=== PATIENT | female | born 1980 | race Two or more races ===

== ENCOUNTER → 2016-11-20 | Outpatient (CLI) | payer OTHER ==
[2016-11-20 13:13] LABS: Basophils # (auto) 0.1 uL; Basophils % (auto) 0.6 % (0.0-2.0); Eosinophils # (auto) 0.1 uL; Eosinophils % (auto) 0.6 % (0.0-7.0); Hematocrit 35.7 % (36.0-46.0); Hemoglobin 12.6 g/dL (12.2-16.2); Lymphocytes # (auto) 2.5 uL; Mean Corpuscular Hgb Conc. 35.2 g/dL (32.0-36.0); Mean Corpuscular Volume 88.2 fL (80.0-100.0); Mean Platelet Volume 8.6 fL (7.4-10.4); Monocytes # (auto) 0.7 uL; Monocytes % (auto) 7.3 % (0.0-12.0); Neutrophils # (auto) 6.4 uL; Neutrophils % (auto) 65.5 % (37.0-80.0); Platelet Count (auto) 327 10^3/uL (140-450); Red Cell Distribution Width 13.1 % (11.6-16.0); White Blood Cell 9.7 10^3/uL (4.4-10.8)
== END | disposition home or self-care (01) ==
LOC: LAB 12:39
PROVIDERS: ATTEND Obstetrics & Gynecology
DX: Z34.80 Encounter for supervision of other normal pregnancy, unspecified trimester (principal); Z36 Encounter for antenatal screening of mother
CPT/HCPCS: 36415; 81025; 81220; 84702; 85025; 86592; 86703; 86762; 86850; 86900; 86901; 87086; 87340

== ENCOUNTER → 2017-03-19 | Outpatient (CLI) | payer OTHER ==
[2017-03-19 09:55] LABS: Basophils # (auto) 0.1 uL; Basophils % (auto) 0.7 % (0.0-2.0); Eosinophils # (auto) 0.1 uL; Eosinophils % (auto) 0.7 % (0.0-7.0); Hematocrit 31.5 % (36.0-46.0); Hemoglobin 10.8 g/dL (12.2-16.2); Lymphocytes # (auto) 2.7 uL; Lymphocytes % (auto) 23.3 % (10.0-50.0); Mean Corpuscular Hemoglobin 30.8 pg (28.0-32.0); Mean Corpuscular Hgb Conc. 34.2 g/dL (32.0-36.0); Mean Corpuscular Volume 89.9 fL (80.0-100.0); Mean Platelet Volume 8.8 fL (6.9-10.8); Monocytes # (auto) 0.8 uL; Monocytes % (auto) 6.8 % (0.0-12.0); Neutrophils # (auto) 7.8 uL; Neutrophils % (auto) 68.5 % (37.0-80.0); Nucleated Red Blood Cells % 0.1 %; Platelet Count (auto) 287 10^3/uL (140-450); Red Cell Distribution Width 13.7 % (11.8-14.3); White Blood Cell 11.4 10^3/uL (4.4-10.8)
== END | disposition home or self-care (01) ==
LOC: LAB 08:32
PROVIDERS: ATTEND Obstetrics & Gynecology
DX: O99.810 Abnormal glucose complicating pregnancy (principal); Z3A.00 Weeks of gestation of pregnancy not specified
CPT/HCPCS: 36415; 82951; 85025

== ENCOUNTER 2017-04-08 15:10 | Observation (INO) | payer OTHER ==
[~2017-04-08] VITALS: Ht 165.1 cm; Wt 71.2 kg
[2017-04-08] MEDS ORDERED: LACTATED RINGER'S 1,000 ML IV ONE (17:19)
[2017-04-08] MEDS: TERBUTALINE SULFATE 1 MG/ML 1ML VIAL SC SCH ×2 (17:34→18:28)
[2017-04-08] MEDS ORDERED: NIFEdipine 10 MG CAP PO ONE (18:45)
== END 2017-04-08 19:45 | disposition home or self-care (01) | DRG 781 ==
LOC: LDRP 15:10
PROVIDERS: ADMIT Specialist; ATTEND Specialist
DX: O26.893 Other specified pregnancy related conditions, third trimester (principal); R10.9 Unspecified abdominal pain; Z3A.30 30 weeks gestation of pregnancy
CPT/HCPCS: 59025; 76815; 81002; 96360; 96361; 96372; G0378; J3105; 96365; 96366

== ENCOUNTER → 2017-05-12 | Outpatient (CLI) | payer OTHER ==
[2017-05-12 11:12] LABS: Basophils # (auto) 0 uL; Basophils % (auto) 0.6 % (0.0-2.0); Eosinophils # (auto) 0.1 uL; Eosinophils % (auto) 0.8 % (0.0-7.0); Hematocrit 30.6 % (36.0-46.0); Hemoglobin 10.5 g/dL (12.2-16.2); Lymphocytes % (auto) 22.4 % (10.0-50.0); Mean Corpuscular Hemoglobin 30.7 pg (28.0-32.0); Mean Corpuscular Hgb Conc. 34.5 g/dL (32.0-36.0); Mean Platelet Volume 9.1 fL (6.9-10.8); Monocytes # (auto) 0.6 uL; Monocytes % (auto) 7.1 % (0.0-12.0); Neutrophils # (auto) 6.1 uL; Neutrophils % (auto) 69.1 % (37.0-80.0); Platelet Count (auto) 240 10^3/uL (140-450); Red Cell Distribution Width 13.1 % (11.8-14.3); White Blood Cell 8.8 10^3/uL (4.4-10.8)
== END | disposition home or self-care (01) ==
LOC: LAB 10:52
PROVIDERS: ATTEND Obstetrics & Gynecology
DX: O09.529 Supervision of elderly multigravida, unspecified trimester (principal); O23.599 Infection of other part of genital tract in pregnancy, unspecified trimester; Z3A.00 Weeks of gestation of pregnancy not specified
CPT/HCPCS: 36415; 85025; 86592; 87081

== ENCOUNTER 2017-06-11 17:15 | Inpatient (IN) | payer OTHER ==
[~2017-06-11] VITALS: Ht 1 cm; Wt 0.5 kg
[2017-06-11] MEDS ORDERED: LACTATED RINGER'S 1,000 ML IV SCH ×2 (17:36→17:37)
[2017-06-11] MEDS ORDERED: LACT. RINGERS/OXYTOCIN 20UNITS 1,000 ML IV SCH ×2 (17:36→17:37)
[2017-06-11] MEDS ORDERED: NALBUPHINE HCL 10 MG/1ml INJECTION IV PRN ×2 (17:45)
[2017-06-11] MEDS ORDERED: PHISODERM TOP SOLN 240ML BTL TOP PRN ×2 (17:45)
[2017-06-11] MEDS ORDERED: METHYLERGONOVINE MALEATE 0.2 MG/ML AMP IM PRN ×2 (17:45)
[2017-06-11] MEDS ORDERED: PROMETHAZINE HCL 25 MG/ML 1ML IV PRN (17:45)
[2017-06-11] MEDS ORDERED: LIDOCAINE 2%HCL (LOCAL ANESTH.) INJ 20ML MDV IJ ONE (17:45)
[2017-06-11] MEDS ORDERED: CARBOPROST TROMETHAMINE 250 MCG/1ML VIAL IM PRN (17:45)
[2017-06-11] MEDS ORDERED: LIDOCAINE 2%HCL (LOCAL ANESTH.) INJ 20ML MDV IJ PRN (17:45)
[2017-06-11] MEDS ORDERED: WITCH HAZEL-GLYCERIN PAD TOP PRN ×2 (17:45)
[2017-06-11] MEDS ORDERED: DERMOPLAST 60ML BOTTLE TOP PRN ×2 (17:45)
[2017-06-11 18:22] LABS: Basophils # (auto) 0 uL; Basophils % (auto) 0.5 % (0.0-2.0); Eosinophils # (auto) 0 uL; Eosinophils % (auto) 0.5 % (0.0-7.0); Hematocrit 29.6 % (36.0-46.0); Hemoglobin 10.2 g/dL (12.2-16.2); Lymphocytes # (auto) 2.1 uL; Lymphocytes % (auto) 22.5 % (10.0-50.0); Mean Corpuscular Hemoglobin 30.9 pg (28.0-32.0); Mean Corpuscular Hgb Conc. 34.3 g/dL (32.0-36.0); Monocytes # (auto) 0.8 uL; Monocytes % (auto) 8.9 % (0.0-12.0); Neutrophils # (auto) 6.3 uL; Neutrophils % (auto) 67.6 % (37.0-80.0); Nucleated Red Blood Cells % 2.1 %; Platelet Count (auto) 235 10^3/uL (140-450); Red Blood Cells 3.28 10^6/uL (4.0-5.20); White Blood Cell 9.3 10^3/uL (4.4-10.8)
[2017-06-11 18:28] LABS: Urine Bacteria MOD /hpf (None Seen); Urine Blood 2+ /uL (Negative); Urine Specific Gravity 1.006 (1.001-1.035); Urine WBC 74 /hpf (0 - 5)
[2017-06-11 18:35] LABS: Albumin 2.3 g/dL (3.4-5.0); BUN/Creatinine Ratio 19.1; Bilirubin, Total 0.2 mg/dL (0.2-1.0); Potassium 3.9 mmol/L (3.5-5.1); Total Protein 6.5 g/dL (6.4-8.2)
[2017-06-11 18:38] LABS: INR 0.86 (0.9-1.15); Partial Thromboplastin Time 28.8 sec (22.64-33.71); Prothrombin Time 9.4 sec (9.37-12.3)
[2017-06-12] VITALS: BP 100/61
[2017-06-12] MEDS ORDERED: fentaNYL W ROPIVACAINE 150 ML EPI SCH ×2 (01:30→03:45)
[2017-06-12] MEDS ORDERED: NALOXONE HCL 0.4 MG/ML VIAL IV ONE ×2 (01:30→03:45)
[2017-06-12] MEDS ORDERED: ePHEDrine SULFATE 50 MG/ML AMP IV ONE ×2 (01:30→03:45)
[2017-06-12] MEDS ORDERED: fentaNYL CITRATE 100 MCG/2 ML VL IV ONE (01:30)
[2017-06-12] MEDS ORDERED: LIDOCAINE HCL 2 %PF INJ 10ML AMP IJ ONE (01:30)
[2017-06-12] MEDS ORDERED: SODIUM CHLORIDE 0.9% 500 ML IV PRN (03:39)
[2017-06-12] MEDS ORDERED: CLINDAMYCIN 900MG IV 50 ML IV ONE (08:41)
[2017-06-12] MEDS ORDERED: PREN-96 PO (15:13)
[2017-06-12 16:00] VITALS: BP 113/84
[2017-06-12 20:00] VITALS: BP 108/73
[2017-06-13] VITALS: BP 100/61
[2017-06-13 04:03] VITALS: BP 106/71
[2017-06-13 06:56] VITALS: BP 113/78
[2017-06-13 12:10] VITALS: BP 115/76
== END 2017-06-13 13:40 | disposition home or self-care (01) | DRG 775 ==
LOC: OBSVTOIN 17:15 → LDRP 17:15
PROVIDERS: ADMIT Obstetrics & Gynecology; ATTEND Obstetrics & Gynecology
PROC: 10E0XZZ Delivery of Products of Conception, External Approach (ICD-10-PCS; principal; 2017-06-12)
PROC: 0KQM0ZZ Repair Perineum Muscle, Open Approach (ICD-10-PCS; 2017-06-12)
PROC: 00HU33Z Insertion of Infusion Device into Spinal Canal, Percutaneous Approach (ICD-10-PCS; 2017-06-12)
PROC: 3E0R3BZ Introduction of Anesthetic Agent into Spinal Canal, Percutaneous Approach (ICD-10-PCS; 2017-06-12)
DX: O42.02 Full-term premature rupture of membranes, onset of labor within 24 hours of rupture (principal); O71.4 Obstetric high vaginal laceration alone; O69.81X0 Labor and delivery complicated by cord around neck, without compression, not applicable or unspecified; Z37.0 Single live birth; Z3A.39 39 weeks gestation of pregnancy; O71.82 Other specified trauma to perineum and vulva
CPT/HCPCS: 36415; 59025; 59409; 62282; 80053; 81001; 85025; 85610; 85730; 86850; 86900; 86901; 96361; 96366; 96374; J2590; J3010; J3490

== ENCOUNTER 2024-12-01 20:02 | Inpatient (IN) | payer MEDICAID, OTHER ==
[~2024-12-01] VITALS: Ht 160 cm; Wt 73.0 kg
[~2024-12-01 20:02] MED LIST: PREN-96 PO
--- NOTE | 2024-12-01 20:14 | ED.PDOC ---
GI ASSESSMENT HPI Comments 44 year old female presents to the ED via EMS with a chief complaint of abdominal pain onset today (12/01/24) about 3 hours ago. Patient was at a facility with her children when she began experiencing sharp LLQ pain, nausea/vomiting. Per EMS, patient was given 200 mcg Fentanyl in route, with slight improvement of pain. Denies any PMHx as well as diarrhea, constipation, chest pain, fevers, chills, headache, dizziness, dysuria, hematuria, hematemes is. No other symptoms or modifying factors present at this time. Chief Complaint: Abdominal Pain Time Seen by MD: 20:05 Reviewed Notes: Nurses Notes, Sanding Machine Tender Notes, Medications, Allergies Allergies: Coded Allergies: Penicillins (Verified Allergy, Unknown, 04/08/17) RASH Home Meds Reported Medications Vit W/ Ferrous Fumara ( One Daily) Daily Tab, 1 TAB PO DAILY, #90 TAB 3 Refills 06/12/17 Information Source: Patient, Emergency Med Personnel Mode of Arrival: EMS Timing: Hours Duration: Since onset Prehospital treatment: Pain Meds (200 mcg Fentanyl) Quality: Cramping, Sharp Vomitus: Food Particles, Soft, Watery Severity: Severe Recent: None Recent Hx of: None Pain Location: LLQ Modifying Factors: Nothing Associated sign and symptoms: Nausea, Vomiting, Abdominal Pain Past Medical History PAST MEDICAL HISTORY: Denies Surgical History: Denies all surgeries DECOMMISSIONING WELL SITE MANAGER History: No Pertinent DECOMMISSIONING WELL SITE MANAGER History Family History Family History: Reviewed,noncontributory to illness, No family hx of Cancer, No family hx of DM, No family hx of Heart candie, No family hx of HTN, No family hx ofKidney candie, No family hx of Liver candie, No family hx of Lung candie, No family hx of Stroke Social History Smoker: Non-Smoker Alcohol: Denies ETOH Use Drugs: Denies Drug Use Lives In: Home Constitutional: denies: chills, diaphoresis, fatigue, fever, malaise, sweats, weakness, others EENTM: denies: blurred vision, double vision, ear bleeding, ear discharge, ear drainage, ear pain, ear ringing, eye pain, eye redness, hearing loss, mouth pain , mouth swelling, nasal discharge, nose bleeding, nose congestion, nose pain, photophobia, tearing, throat pain, throat swelling, voice changes, others Respiratory: denies: cough, hemoptysis, orthopnea, SOB at rest, shortness of breath, SOB with excertion, stridor, wheezing, others Cardiovascular: denies: chest pain, dizzy spells, diaphoresis, Dyspnea on exertion, edema, irregular heart beat, left arm pain, lightheadedness, palpitations, PND, syncope, others Gastrointestinal: reports: abdominal pain (LLQ), nausea, vomiting; denies: abdomen distended, blood streaked bowels, constipated, diarrhea, dysphagia, difficulty swallowing, hematemesis, melena, poor appetite, poor fluid intake, rectal bleeding, rectal pain, others Genitourinary: denies: abnormal vagina bleeding, burning, dyspareunia, dysuria, flank pain, frequency, hematuria, incontinence, pain, , vagina discharge, urgency, others Neurological: denies: dizziness, fainting, headache, left sided numbness, left sided weakness, numbness, paresthesia, pre-existing deficit, right sided numbness, right sided weakness, seizure, speech problems, tingling, tremors, weakness, others Musculoskeletal: denies: back pain, gout, joint pain, joint swelling, muscle pain, muscle stiffness, neck pain, others Integumetry: denies: bruises, change in color, change in hair/nails, dryness, laceration, lesions, lumps, rash, wounds, others Allergic/Immunocompromised: denies: Difficulty Healing, Frequent Infections, Hives, Itching, others Hematologic/Lymphatic: denies: anemia, blood clots, easy bleeding, easy bruising, swollen glands, others Endocrine: denies: excessive hunger, excessive sweating, excessive thirst, excessive urination, flushing, intolerance to cold, intolerance to heat, unexplained weight gain, unexplained weight loss, others Psychiatric: denies: anxiety, bipolar disorder, depression, hopeless, panic disorder, schizophrenia, sleepless, suicidal, others All Other Systems: Reviewed and Negative Physical Exam General Appearance: Moderate Distress (Patient was in moderate distress due to left-sided abdominal and flank a sharp pain), Normal HEENT: Normal ENT Inspection, Pharynx Normal, TMs Normal Neck: Full Range of Motion, Non-Tender, Normal, Normal Inspection Respiratory: Chest Non-Tender, Lungs Clear, No Accessory Muscle Use, No Respiratory Distress, Normal Breath Sounds Cardiovascular: No Edema, No JVD, No Murmur, No Gallop, Normal Peripheral Pulses, Regular Rate/Rhythm Breast Exam: Deferred Gastrointestinal: Other (Diffuse left-sided lower abdominal pain extending towards the left flank region. CVA tenderness appreciated. No signs of trauma.) Genitalia: Deferred Pelvic: Deferred Rectal: Deferred Extremities: No calf tenderness, Normal capillary refill, Normal inspection, Normal range of motion, Non-tender, No pedal edema Musculoskeletal : Apperance: Normal Neurologic: Alert, No Motor Deficits, Normal Affect, Normal Mood, No Sensory Deficits Cerebellar Function: Normal Reflexes: Normal Skin: Dry, Normal Color, Warm Lymphatic: No Adenopathy Was a procedure done? Was a procedure done?: No GI differential Dx Differential Diagnosis: Other (Kidney stone, occlusive kidney stone, pyelonephritis, UTI, musculoskeletal pain, constipation) X-Ray, Labs, Meds, VS Vital Signs Date Time Temp Pulse Resp B/P (MAP) Pulse Ox O2 Delivery O2 Flow Rate FiO2 12/01/24 23:07 97.7 84 24 170/109 (129) 99 97.7 12/01/24 20:20 78 28 171/104 12/01/24 20:10 98.4 78 28 171/104 (126) 96 98.4 Lab Test 12/01/24 20:37 12/01/24 20:35 Range/Units Urine Color Colorless Yellow Urine Clarity Clear Clear Urine pH 7.0 5.0-9.0 Urine Specific [place] 1.011 1.001-1.035 Urine Protein Negative Negative Urine Ketones 1+ H Negative Urine Blood 2+ H Negative /uL Urine Nitrite Negative Negative Urine Bilirubin Negative Negative Urine Urobilinogen Normal Negative mg/dL Urine Leukocyte Esterase Trace Negative /uL Urine RBC 65 0 - 4 /hpf Urine Microscopic WBC 1 0-5 /HPF Urine Squamous Epithelial Cells Few <5 /hpf Urine Bacteria None seen None Seen /hpf Urine Mucus Few None Seen Urine Glucose Normal Normal mg/dL Urine Test Negative Negative White Blood Count 12.5 H 4.4-10.8 10^3/uL Red Blood Count 4.50 4.0-5.20 10^6/uL Hemoglobin 13.1 12.2-16.2 g/dL Hematocrit 38.1 36.0-46.0 % Mean Corpuscular Volume 84.6 80.0-100.0 fL Mean Corpuscular Hemoglobin 29.2 28.0-32.0 pg Mean Corpuscular Hemoglobin Concent 34.5 32.0-36.0 g/dL Red Cell Distribution Width 13.3 11.8-14.3 % Platelet Count 302 140-450 10^3/uL Mean Platelet Volume 8.7 6.9-10.8 fL Neutrophils (%) (Auto) 82.3 H 37.0-80.0 % Lymphocytes (%) (Auto) 13.8 10.0-50.0 % Monocytes (%) (Auto) 3.2 0.0-12.0 % Eosinophils (%) (Auto) 0.2 0.0-7.0 % Basophils (%) (Auto) 0.5 0.0-2.0 % Neutrophils # (Auto) 10.3 H 1.6-8.6 10 ^3/uL Lymphocytes # (Auto) 1.7 0.4-5.4 10 ^3/uL Monocytes # (Auto) 0.4 0-1.3 10 ^3/uL Eosinophils # (Auto) 0 0-0.8 10 ^3/uL Basophils # (Auto) 0.1 0-0.2 10 ^3/uL Nucleated Red Blood Cells 0.0 % Sodium Level 140 136-145 mmol/L Potassium Level 3.3 L 3.5-5.1 mmol/L Chloride Level 107 98-107 mmol/L Carbon Dioxide Level 20 20-31 mmol/L Anion Gap 13 5-15 Blood Urea Nitrogen 16 9-23 mg/dL Creatinine 0.87 0.550-1.02 mg/dL Glomerular Filtration Rate Calc 85 >90 mL/min BUN/Creatinine Ratio 18.4 10.0-20.0 Serum Glucose 132 H 74-106 mg/dL Calcium Level 8.8 8.7-10.4 mg/dL Total Bilirubin 0.3 0.2-1.0 mg/dL Aspartate Amino Transferase (AST) 12 <34 U/L Alanine Aminotransferase (ALT) 9 7-40 U/L Alkaline Phosphatase 71 46-116 U/L Total Protein 7.2 5.7-8.2 g/dL Albumin 4.3 3.2-4.8 g/dL Lipase 36 12-53 U/L Current Medications Medications (Trade) Dose Ordered Sig/Gregory Route Start Time Stop Time Status Last Admin Hydromorphone HCl (Dilaudid Injection) 0.5 mg ONCE ONCE IV 12/01/24 20:15 12/01/24 20:16 DC 12/01/24 20:20 Ondansetron HCl (Zofran) 4 mg ONCE ONCE IV 12/01/24 20:15 12/01/24 20:16 DC 12/01/24 20:20 X-Ray, Labs, Meds, VS Comment All studies performed in the ED today were evaluated by me personally. Serum studies were unremarkable for any systemic concerns, but urinalysis confirmed a high red blood cell concentration. CT of the abdomen confirmed a left-sided hydronephrosis with a an occlusive stone. Patient will be admitted for pain management and assistance in passing stone. Time of 1ST Reevaluation: 23:16 Reevaluation 1ST: Improved Consultation: PCP Patient Education/Counseling: Diagnosis, Treatment, Prognosis Family Education/Counseling: Diagnosis, Treatment, No Family Present SEPSIS Sepsis Screen Recent Procedure: No On Antibiotic Therapy: No Respiratory Rate >20: No Heart Rate >90: No Temp<36 C (96.8 F) or >38.3 C: No SBP <90 or MAP <65 mmHG: No New Acute Mental Status Change: No Is the patient on CPAP, BIPAP,: No IV fluid challenge completed?: No Physician Orders Ct Ab Pel Wo Con-No Oral Or Iv (12/01/24 20:09) Heplock Iv (12/01/24 ) Heplock Iv (12/01/24 ) Vital Signs Date Time Temp Pulse Resp B/P (MAP) Pulse Ox O2 Delivery O2 Flow Rate FiO2 12/01/24 23:07 97.7 84 24 170/109 (129) 99 97.7 12/01/24 20:20 78 28 171/104 12/01/24 20:10 98.4 78 28 171/104 (126) 96 98.4 Laboratory Tests Test 12/01/24 20:35 White Blood Count 12.5 10^3/uL (4.4-10.8) H Medications Medications Dose Ordered Sig/Gregory Route Start Time Stop Time Status Last Admin Dose Admin Hydromorphone HCl 0.5 mg ONCE ONCE IV 12/01/24 20:15 12/01/24 20:16 DC 12/01/24 20:20 Ondansetron HCl 4 mg ONCE ONCE IV 6/20/25 20:15 12/01/24 20:16 DC 12/01/24 20:20 Departure 1 Departure Time of Disposition: 23:17 Impression: Primary Impression: Hydronephrosis concurrent with and due to calculi of kidney and ureter Disposition: ADMITTED INPATIENT Condition: Stable Discharged With: Self, Spouse Critical Care Note Critical Care Time?: No Stability Stability form required: No Heart Score Heart Score: Heart Score Response (Comments) Value History N/A 0 EKG N/A 0 Age N/A 0 Risk Factors N/A 0 Troponin N/A 0 Total 0 I personally scribed for TARA VILLATORO PAC ([email or web address]) on 12/01/24 at 20:14. Electronically submitted by Ivone Porter ([email or web address]). TARA VILLATORO PAC Dec 01, 2024 20:14
[2024-12-01] MEDS: HYDROmorphone HCL 2 MG/ML VL/or syr IV ONE ×2 (20:20→23:28)
[2024-12-01] MEDS: ONDANSETRON HCL 4 MG/2 ML VIAL IV ONE (20:20)
[2024-12-01 20:45] LABS: Basophils # (auto) 0.1 10 ^3/uL (0-0.2); Basophils % (auto) 0.5 % (0.0-2.0); Eosinophils # (auto) 0 10 ^3/uL (0-0.8); Eosinophils % (auto) 0.2 % (0.0-7.0); Hematocrit 38.1 % (36.0-46.0); Hemoglobin 13.1 g/dL (12.2-16.2); Lymphocytes # (auto) 1.7 10 ^3/uL (0.4-5.4); Lymphocytes % (auto) 13.8 % (10.0-50.0); Mean Corpuscular Hemoglobin 29.2 pg (28.0-32.0); Mean Corpuscular Hgb Conc. 34.5 g/dL (32.0-36.0); Mean Corpuscular Volume 84.6 fL (80.0-100.0); Monocytes # (auto) 0.4 10 ^3/uL (0-1.3); Monocytes % (auto) 3.2 % (0.0-12.0); Neutrophils # (auto) 10.3 10 ^3/uL (1.6-8.6); Neutrophils % (auto) 82.3 % (37.0-80.0); Platelet Count (auto) 302 10^3/uL (140-450); Red Cell Distribution Width 13.3 % (11.8-14.3); White Blood Cell 12.5 10^3/uL (4.4-10.8)
[2024-12-01 21:04] LABS: Albumin 4.3 g/dL (3.2-4.8); Alkaline Phosphatase 71 U/L (46-116); Anion Gap 13 (5-15); Aspartate Aminotransferase 12 U/L (<34); BUN/Creatinine Ratio 18.4 (10.0-20.0); Bilirubin, Total 0.3 mg/dL (0.2-1.0); Blood Urea Nitrogen 16 mg/dL (9-23); Calcium 8.8 mg/dL (8.7-10.4); Carbon Dioxide 20 mmol/L (20-31); Chloride 107 mmol/L (98-107); Lipase 36 U/L (12-53); Sodium 140 mmol/L (136-145); Total Protein 7.2 g/dL (5.7-8.2)
[2024-12-01 21:06] LABS: Urine Bacteria None Seen /hpf (None Seen)
[2024-12-01 21:08] LABS: Alanine Aminotransferase 9 U/L (7-40); Glucose 132 mg/dL (74-106); Potassium 3.3 mmol/L (3.5-5.1)
[2024-12-01 21:19] LABS: Urine Blood 2+ /uL (Negative); Urine Clarity Clear (Clear); Urine Color Colorless (Yellow); Urine Mucus FEW (None Seen); Urine Protein, UAD Negative (Negative); Urine Specific Gravity 1.011 (1.001-1.035); Urine Squamous Epithelial Cell FEW /hpf (<5); Urine Urobilinogen Normal (Negative); Urine WBC 1 /HPF (0-5)
--- NOTE | 2024-12-01 22:03 | DVH ---
Exam: CT CT AB PEL WO CON-NO ORAL OR IV History: Left lower quadrant pain Comparison Study: None TECHNIQUE: Multidetector CT of the abdomen was performed from lung bases to pubic symphysis. Imaging was performed without IV contrast. Axial, coronal and sagittal multiplanar reformats were obtained fr om the axial data set by the technologist. Radiation Dose Information: CT Dose: CTDI volume is 8.78 mGy. Dose-length product is 523.38 mGy*cm FINDINGS: Evaluation of solid organs is limited due to lack of intravenous contrast use. Findings: Lung Bases: No acute or significant lung base finding. Normal heart size. No pleural or pericardial effusion. Liver: The liver is normal in size. No focal lesions. Gallbladder and Biliary Tree: Unremarkable Spleen: Unremarkable Pancreas: The pancreas is grossly normal in appearance. Adrenal Glands: Unremarkable Kidneys: Kidneys are grossly normal . Mild left hydronephrosis. Bladder: 5.37 mm calculus at the left ureterovesical junction Bowel: The stomach is grossly normal in appearance. Small bowel and colon are normal in caliber and d istribution. The appendix is not visualized; however, no secondary findings of acute appendicitis id entified. Ascites: Absent Lymphadenopathy: No mesenteric, retroperitoneal or periportal lymphadenopathy. Abdominal Wall and Mesentery: Unremarkable. Vasculature: The visualized abdominal aorta is normal in size and caliber. Evaluation of abdominal a nd pelvic vessels is limited due to lack of intravenous contrast. Pelvic Organs: Unremarkable Musculoskeletal: No aggressive focal bony lesions, acute fractures or dislocation. Soft tissues: Unremarkable IMPRESSION: 1. Mild left hydronephrosis. There is a 5.37 mm calculus at the left ureterovesical junction. HS:Y Radiation optimization: All CT scans at this facility use at least one of these dose optimization jana hniques: automated exposure control mA and/or kV adjustment per patient size (includes targeted exam s where dose is matched to clinical indication) or iterative reconstruction.
[2024-12-01] MEDS ORDERED: HYDROcodone-ACET 10/325MG TAB PO ONE (23:00)
[2024-12-02] VITALS (7 sets, daily range): BP systolic 113–136; BP diastolic 75–95; PULSE 72–100; RESP 13–17; TEMP 97.6–98.6; O2SAT 94–100
[2024-12-02] MEDS ORDERED: HYDROcodone-ACET 5/325MG TAB PO PRN
[2024-12-02] MEDS ORDERED: ACETAMINOPHEN 325 MG TAB PO PRN
[2024-12-02] MEDS ORDERED: HYDROmorphone HCL 2 MG/ML VL/or syr IV PRN
[2024-12-02] MEDS ORDERED: ONDANSETRON HCL 4 MG/2 ML VIAL IV PRN
[2024-12-02] MEDS ORDERED: DOCUSATE SOD 100 MG CAP PO PRN
[2024-12-02] MEDS: cefTRIAXone 1GM/50ML D5W 50 ML IV ONE (02:23)
[2024-12-02] MEDS: KETOROLAC TROMETH 30 MG/ML 1ML VIAL IV ONE (02:24)
[2024-12-02] MEDS ORDERED: MORPHINE SULFATE INJ 2 MG/ml SYRG IV PRN (03:15)
[2024-12-02] MEDS ORDERED: NITROGLYCERIN 0.4 MG SL TAB SL PRN (03:15)
--- NOTE | 2024-12-02 03:23 | DVHHP2 ---
History of Present Illness Reason for Visit: Hydronephrosis concurrent with and due to calculi of kidney and ureter History of Present Illness The patient is a 44-year-old female who denies past medical history presented to [facility] ED with complaint of acute abdominal pain. Patient reports she was was at a facility with her children when she began experiencing sharp left lower quadrant pain, associated nausea and vomiting. Patient was seen and evaluated in the ED, laboratory data shows WBC 12.5, platelets 302, sodium 140, potassium 3.3, BUN 16, creatinine 0.87, glucose 132, calcium 8.8, lipase 36, blood pressure 171/104 trending down to 146/102, heart rate 89, temperature 97.7 F, O2 saturation 99% on room. CT of the abdomen/pelvis revealing mild left hydronephrosis, there is a 5.37 mm calculus at the left ureterovesical junction. Please see medication orders section in the computer. On my assessment, patient denied chest pain, no headache, no dizziness, no shortness of breath, no diarrhea, no nausea, no vomiting, no fever, no chills. Patient was admitted for further evaluation and medical management. Past Medical History Denies past medical history Past Surgical History Denies all surgeries Family History Reviewed, noncontributory to the management of this case. Past Social History The patient lives at home, denies smoking, alcohol or illicit drugs abuse. Review of Systems Constitutional: No: Fever, Chills, Sweats, Weakness, Malaise, Other Eyes: No: Pain, Vision change, Conjunctivae inflammation, Eyelid inflammation, Other, Redness ENT: No: Ear pain, Ear discharge, Nose pain, Nose discharge, Nose congestion, Mouth pain, Mouth swelling, Throat pain, Throat swelling, Other Respiratory: No: Cough, Dry, Shortness of breath, SOB with excertion, Wheezing, Hemoptysis, Pleuritic Pain, Sputum, Wheezing, Other Cardiovascular: No: Chest Pain, Palpitations, Orthopnea, Paroxysmal Noc. Dyspnea, Edema, Lt Headedness, Other Gastrointestinal: Nausea, Vomiting, Abdominal Pain; No: Diarrhea, Constipation, Melena, Hematochezia, Other Genitourinary: No Dysuria, No Frequency, No Incontinence, No Hematuria, No Retention, No Other Musculoskeletal: No: other, neck pain, shoulder pain, arm pain, back pain, hand pain, leg pain, foot pain Skin: No: Rash, Lesions, Jaundice, Bruising, Other Neurological: No: Weakness, Numbness, Incoordination, Change in speech, Confusion, Seizures, Other Allergies: Coded Allergies: Penicillins (Verified Allergy, Unknown, 04/08/17) RASH Medications Current Medications Medications Dose Ordered Sig/Gregory Route Start Time Stop Time Status Last Admin Dose Admin Ceftriaxone Sodium 50 ml @ 100 mls/hr DAILY@09 IV 12/02/24 09:00 Sodium Chloride 10 ml Q8HR IV 12/02/24 06:00 Acetaminophen/ Hydrocodone Bitart 1 tab Q4HP PRN PO 12/02/24 00:00 Ondansetron HCl 4 mg Q4HP PRN IV 12/02/24 00:00 Docusate Sodium 100 mg BIDPRN PRN PO 12/02/24 00:00 Acetaminophen 650 mg Q6HP PRN PO 12/02/24 00:00 Hydromorphone HCl 0.5 mg Q4HPRN PRN IV 12/02/24 00:00 Exam Vital Signs Vital Signs Date Time Temp Pulse Resp B/P (MAP) Pulse Ox O2 Delivery O2 Flow Rate FiO2 12/02/24 01:17 98.0 79 16 148/104 (119) 95 98.0 General Appearance: Alert, Oriented X3, Cooperative, No acute distress HEENT: Atraumatic, PERRLA, EOMI, Mucous membr. moist/pink Respiratory: Clear to auscultation, Normal air movement Cardiovascular: Regular rate, Normal S1, Normal S2, No murmurs Abdominal: Normal bowel sounds, Soft, No hepatospenomegaly, No masses, Other (Reports tenderness) Extremities: No clubbing, No cyanosis, No edema, Normal pulses, No tenderness/swelling Skin: No rashes, No breakdown, No significant lesion Neuro: Normal gait, Normal speech, Strength at 5/5 X4 ext, Normal tone, Sensation intact, Cranial nerves 3-12 NL, Reflexes 2+ Psych/Mental Status: Mental status NL, Mood NL Labs/Xrays Labs Test 12/01/24 20:37 12/01/24 20:35 Range/Units Urine Color Colorless Yellow Urine Clarity Clear Clear Urine pH 7.0 5.0-9.0 Urine Specific [place] 1.011 1.001-1.035 Urine Protein Negative Negative Urine Ketones 1+ H Negative Urine Blood 2+ H Negative /uL Urine Nitrite Negative Negative Urine Bilirubin Negative Negative Urine Urobilinogen Normal Negative mg/dL Urine Leukocyte Esterase Trace Negative /uL Urine RBC 65 0 - 4 /hpf Urine Microscopic WBC 1 0-5 /HPF Urine Squamous Epithelial Cells Few <5 /hpf Urine Bacteria None seen None Seen /hpf Urine Mucus Few None Seen Urine Glucose Normal Normal mg/dL Urine Test Negative Negative White Blood Count 12.5 H 4.4-10.8 10^3/uL Red Blood Count 4.50 4.0-5.20 10^6/uL Hemoglobin 13.1 12.2-16.2 g/dL Hematocrit 38.1 36.0-46.0 % Mean Corpuscular Volume 84.6 80.0-100.0 fL Mean Corpuscular Hemoglobin 29.2 28.0-32.0 pg Mean Corpuscular Hemoglobin Concent 34.5 32.0-36.0 g/dL Red Cell Distribution Width 13.3 11.8-14.3 % Platelet Count 302 140-450 10^3/uL Mean Platelet Volume 8.7 6.9-10.8 fL Neutrophils (%) (Auto) 82.3 H 37.0-80.0 % Lymphocytes (%) (Auto) 13.8 10.0-50.0 % Monocytes (%) (Auto) 3.2 0.0-12.0 % Eosinophils (%) (Auto) 0.2 0.0-7.0 % Basophils (%) (Auto) 0.5 0.0-2.0 % Neutrophils # (Auto) 10.3 H 1.6-8.6 10 ^3/uL Lymphocytes # (Auto) 1.7 0.4-5.4 10 ^3/uL Monocytes # (Auto) 0.4 0-1.3 10 ^3/uL Eosinophils # (Auto) 0 0-0.8 10 ^3/uL Basophils # (Auto) 0.1 0-0.2 10 ^3/uL Nucleated Red Blood Cells 0.0 % Sodium Level 140 136-145 mmol/L Potassium Level 3.3 L 3.5-5.1 mmol/L Chloride Level 107 98-107 mmol/L Carbon Dioxide Level 20 20-31 mmol/L Anion Gap 13 5-15 Blood Urea Nitrogen 16 9-23 mg/dL Creatinine 0.87 0.550-1.02 mg/dL Glomerular Filtration Rate Calc 85 >90 mL/min BUN/Creatinine Ratio 18.4 10.0-20.0 Serum Glucose 132 H 74-106 mg/dL Calcium Level 8.8 8.7-10.4 mg/dL Total Bilirubin 0.3 0.2-1.0 mg/dL Aspartate Amino Transferase (AST) 12 <34 U/L Alanine Aminotransferase (ALT) 9 7-40 U/L Alkaline Phosphatase 71 46-116 U/L Total Protein 7.2 5.7-8.2 g/dL Albumin 4.3 3.2-4.8 g/dL Lipase 36 12-53 U/L PATIENT: YASMIN FATIMA ACCT: [id number] UNIT: [id number] : 1980 LOC: ER ROOM / BED: / AGE / SEX: 44 / F ADM STATUS: REG ER SERVICE 08 ORDERING PHYSICIAN: TARA VILLATORO PAC PROCEDURE(s): ABPL - CT AB PEL WO CON-NO ORAL OR IV REASON: Left lower quadrant pain ORDER NUMBER(s): [id number], ACCESSION NUMBER(s): [id number] Exam: CT CT AB PEL WO CON-NO ORAL OR IV History: Left lower quadrant pain Comparison Study: None TECHNIQUE: Multidetector CT of the abdomen was performed from lung bases to pubic symphysis. Imaging was performed without IV contrast. Axial, coronal and sagittal multiplanar reformats were obtained from the axial data set by the technologist. Radiation Dose Information: CT Dose: CTDI volume is 8.78 mGy. Dose-length product is 523.38 mGy*cm FINDINGS: Evaluation of solid organs is limited due to lack of intravenous contrast use. Findings: Lung Bases: No acute or significant lung base finding. Normal heart size. No pleural or pericardial effusion. Liver: The liver is normal in size. No focal lesions. Gallbladder and Biliary Tree: Unremarkable Spleen: Unremarkable Pancreas: The pancreas is grossly normal in appearance. Adrenal Glands: Unremarkable Kidneys: Kidneys are grossly normal . Mild left hydronephrosis. Bladder: 5.37 mm calculus at the left ureterovesical junction Bowel: The stomach is grossly normal in appearance. Small bowel and colon are normal in caliber and distribution. The appendix is not visualized; however, no secondary findings of acute appendicitis identified. Ascites: Absent Lymphadenopathy: No mesenteric, retroperitoneal or periportal lymphadenopathy. Abdominal Wall and Mesentery: Unremarkable. Vasculature: The visualized abdominal aorta is normal in size and caliber. Evaluation of abdominal and pelvic vessels is limited due to lack of intravenous contrast. Pelvic Organs: Unremarkable Musculoskeletal: No aggressive focal bony lesions, acute fractures or dislocation. Soft tissues: Unremarkable IMPRESSION: 1. Mild left hydronephrosis. There is a 5.37 mm calculus at the left ureterovesical junction. Assessment/Plan Assessment/Plan Acute abdominal pain Hypertensive urgency Hyperglycemia Leukocytosis, unspecified Hypokalemia Hydronephrosis concurrent with and due to calculi of kidney and ureter Plan 1. Admit to telemetry unit 2. Breathing treatment 3. Pain control management 4. IV antibiotic management 5. Management of fluids and electrolytes 6. Consultation for Urology 7. Diagnostic test abdomen/pelvis CT 8. DVT prophylaxis on SCDs 9. Repeat labs CBC, CMP in a.m. 10. Home medication reviewed and reconciled 11. Continue with current medical management 12. Treatment plan discussed with patient and RN. Patient verbalized understanding. Plan discussed with: Patient, Other (RN) My Orders Orders - ANITA PARHAM DNP Procedure Category Date Status Time Ceftriaxone 1gm/50ml PHA 12/02/24 In Process D5w (Rocephin) 09:00 * Urology Consult CONS 12/01/24 Transmitted 23:50 Allergies CHELSY 12/01/24 In Process 23:50 Code Status CODE 12/01/24 Transmitted 23:50 Sodium Chloride Lock PHA 12/02/24 In Process (Saline Lock Ns) 06:00 Oxygen Per Hour RT 12/01/24 Transmitted 23:50 Hydrocodone-Acet PHA 12/02/24 In Process 5/325mg Tab (Sumerco 00:00 Ondansetron Hcl PHA 12/02/24 In Process (Zofran) 00:00 Docusate Sodium PHA 12/02/24 In Process Capsule (Colace 00:00 Complete Blood Count LAB 12/02/24 Logged 04:00 Comprehensive LAB 12/02/24 Logged Metabolic Panel 04:00 Cardiac DIET 12/02/24 Transmitted Diet-2gna,Lofat,Lochol Breakfast Condition: Serious CHELSY 12/01/24 In Process 23:50 Acetaminophen Tablet PHA 12/02/24 In Process (Tylenol Tablet) 00:00 Bedrest With Bathroom [facility] 12/01/24 In Process Privileg 23:50 Sequential [facility] 12/01/24 In Process Compression Device Hydromorphone [facility] 12/02/24 In Process Injection (Dilaudid 00:00 Admit ADMIT 12/02/24 Verified 03:03 Nitroglycerin [facility] 12/02/24 Verified Sublingual (Ntrostat 03:15 Morphine Sulfate PHA 12/02/24 Verified Injection 03:15 Stat Ekg For Chest [facility] 12/02/24 Verified Pain 03:03 Notify Md Of Changes [facility] 12/02/24 Verified From Base 03:03 Branch Sales Manager For [facility] 12/02/24 Verified 24 Hours 03:03 Emergency Dysrhythmia [facility] 12/02/24 Verified Protocol 03:03 Rhythm Strips Once [facility] 12/02/24 Verified Every Shift 03:03 Oxygen By Nasal 12/02/24 Verified Cannula 03:03 Problem List: (1) Acute abdominal pain (2) Hypertensive urgency (3) Hyperglycemia (4) Leukocytosis, unspecified (5) Hypokalemia (6) Hydronephrosis concurrent with and due to calculi of kidney and ureter Date of Service: Dec 02, 2024 Billing Provider: ANITA PARHAM DNP Common Visit Codes: [id number] INP/OBS CARE (HIGH) ANITA PARHAM DNP Dec 02, 2024 03:23
[2024-12-02 05:27] LABS: Basophils # (auto) 0.1 10 ^3/uL (0-0.2); Eosinophils # (auto) 0 10 ^3/uL (0-0.8); Hematocrit 38.9 % (36.0-46.0); Hemoglobin 13.2 g/dL (12.2-16.2); Lymphocytes # (auto) 1.1 10 ^3/uL (0.4-5.4); Lymphocytes % (auto) 9.3 % (10.0-50.0); Mean Corpuscular Hemoglobin 28.9 pg (28.0-32.0); Monocytes # (auto) 0.2 10 ^3/uL (0-1.3); Monocytes % (auto) 1.5 % (0.0-12.0); Neutrophils # (auto) 10.7 10 ^3/uL (1.6-8.6); Neutrophils % (auto) 88.2 % (37.0-80.0); Platelet Count (auto) 298 10^3/uL (140-450); Red Blood Cells 4.57 10^6/uL (4.0-5.20); Red Cell Distribution Width 13.4 % (11.8-14.3); White Blood Cell 12.1 10^3/uL (4.4-10.8)
[2024-12-02] MEDS: SODIUM CHLOR 0.9% PF (SALINE LOCK) 10ML VIAL/SYR IV SCH (05:34)
[2024-12-02 05:45] LABS: Albumin 4.4 g/dL (3.2-4.8); Alkaline Phosphatase 71 U/L (46-116); Anion Gap 12 (5-15); Aspartate Aminotransferase 13 U/L (<34); BUN/Creatinine Ratio 13.8 (10.0-20.0); Bilirubin, Total 0.4 mg/dL (0.2-1.0); Blood Urea Nitrogen 15 mg/dL (9-23); Calcium 9.5 mg/dL (8.7-10.4); Carbon Dioxide 22 mmol/L (20-31); Chloride 107 mmol/L (98-107); Potassium 4.2 mmol/L (3.5-5.1); Sodium 141 mmol/L (136-145); Total Protein 7.4 g/dL (5.7-8.2)
[2024-12-02 05:48] LABS: Alanine Aminotransferase 9 U/L (7-40); Glucose 131 mg/dL (74-106)
[2024-12-02] MEDS: cefTRIAXone 1GM/50ML D5W 50 ML IV SCH (08:54)
[2024-12-02] MEDS: TAMSULOSIN HYDROCHLORIDE 0.4 MG CAP PO SCH (18:24)
--- NOTE | 2024-12-02 18:54 | DVHPN2 ---
Subjective 44-year-old female is here for left flank pain found to have left obstructive uropathy with left ureteric stone. Reviewed: Care Plan Changes from previous H/P or p: No Changes Eyes: No Pain, No Vision change, No Conjunctivae inflammation, No Eyelid inflammation, No Other, No Redness ENT: No Ear pain, No Ear discharge, No Nose pain, No Nose discharge, No Nose congestion, No Mouth pain, No Mouth swelling, No Throat pain, No Throat swelling, No Other Cardiovascular: No Chest Pain, No Palpitations, No Orthopnea, No Paroxysmal Noc. Dyspnea, No Edema, No Lt Headedness, No Other Respiratory: No Cough, No Dry, No Shortness of breath, No SOB with excertion, No Wheezing, No Hemoptysis, No Pleuritic Pain, No Sputum, No Other Gastrointestinal: Nausea, Vomiting, Abdominal Pain; No Diarrhea, No Constipation, No Melena, No Hematochezia, No Other Genitourinary: No Dysuria, No Frequency, No Incontinence, No Hematuria, No Retention, No Other Musculoskeletal: No other, No neck pain, No shoulder pain, No arm pain, No back pain, No hand pain, No leg pain, No foot pain Skin: No Rash, No Lesions, No Jaundice, No Bruising, No Other Objective Vitals Vital Signs Date Time Temp Pulse Resp B/P (MAP) Pulse Ox O2 Delivery O2 Flow Rate FiO2 12/02/24 18:20 97.6 83 16 129/87 (101) 98 97.6 12/02/24 05:44 Room Air* 0 21 Intake/Output Intake and Output 12/02/24 07:00 Intake Total 50 ml Balance 50 ml Intake IV Total 50 ml Exam HEENT pupils are reactive Neck is supple CV is S1-S2 regular rate and rhythm Respiratory are clear GI positive bowel sound 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 Medications Current Medications Medications Dose Ordered Sig/Gregory Route Start Time Stop Time Status Last Admin Dose Admin Ceftriaxone Sodium 50 ml @ 100 mls/hr DAILY@09 IV 12/02/24 09:00 12/02/24 08:54 100 MLS/HR Sodium Chloride 10 ml Q8HR IV 12/02/24 06:00 12/02/24 13:05 10 ML Acetaminophen/ Hydrocodone Bitart 1 tab Q4HP PRN PO 12/02/24 00:00 Ondansetron HCl 4 mg Q4HP PRN IV 12/02/24 00:00 Docusate Sodium 100 mg BIDPRN PRN PO 12/02/24 00:00 Acetaminophen 650 mg Q6HP PRN PO 12/02/24 00:00 Hydromorphone HCl 0.5 mg Q4HPRN PRN IV 12/02/24 00:00 Nitroglycerin 0.4 mg Q5MINP PRN SL 12/02/24 03:15 Morphine Sulfate 2 mg Q30M PRN IV 12/02/24 03:15 Tamsulosin HCl 0.4 mg QPM PO 12/02/24 18:00 12/02/24 18:24 0.4 MG Laboratory Results Laboratory Tests 12/02/24 05:05 Chemistry Test 12/01/24 20:35 12/02/24 05:05 Albumin 4.3 g/dL (3.2-4.8) 4.4 g/dL (3.2-4.8) Calcium Level 8.8 mg/dL (8.7-10.4) 9.5 mg/dL (8.7-10.4) Total Protein 7.2 g/dL (5.7-8.2) 7.4 g/dL (5.7-8.2) Lipid panel Test 12/01/24 20:35 Lipase 36 U/L (12-53) LFT Test 12/01/24 20:35 12/02/24 05:05 Alanine Aminotransferase (ALT) 9 U/L (7-40) 9 U/L (7-40) Alkaline Phosphatase 71 U/L (46-116) 71 U/L (46-116) Aspartate Amino Transferase (AST) 12 U/L (<34) 13 U/L (<34) Total Bilirubin 0.3 mg/dL (0.2-1.0) 0.4 mg/dL (0.2-1.0) Urinalysis Test 12/01/24 20:37 Urine Color Colorless (Yellow) Urine Clarity Clear (Clear) Urine pH 7.0 (5.0-9.0) Urine Specific [place] 1.011 (1.001-1.035) Urine Protein Negative (Negative) Urine Ketones 1+ (Negative) H Urine Blood 2+ /uL (Negative) H Urine Nitrite Negative (Negative) Urine Bilirubin Negative (Negative) Urine Urobilinogen Normal mg/dL (Negative) Urine Leukocyte Esterase Trace /uL (Negative) Urine RBC 65 /hpf (0 - 4) Urine Microscopic WBC 1 /HPF (0-5) Urine Squamous Epithelial Cells Few /hpf (<5) Urine Bacteria None seen /hpf (None Seen) Urine Mucus Few (None Seen) Urine Glucose Normal mg/dL (Normal) Urine Test Negative (Negative) Assessment/Plan Assessment/Plan 44-year-old female with a no significant past medical history presented to the hospital with left flank pain found to have 1. Acute left obstructive uropathy secondary to left ureteric stone 2. Left ureteric UVJ stone 3. Mild leukocytosis 4. Complicated UTI -IV antibiotics, Flomax, IV fluids, Urology consultation Plan discussed with: Patient My Orders Orders - KARINA CORNELL MD Procedure Category Date Status Time Tamsulosin PHA 12/02/24 In Process Hydrochloride (Flomax) 18:00 Date of Service: Dec 02, 2024 Billing Provider: KARINA CORNELL MD Common Visit Codes: [id number] INP/OBS CARE(MOD) KARINA CORNELL MD Dec 02, 2024 18:54
[2024-12-03] VITALS (10 sets, daily range): BP systolic 101–155; BP diastolic 68–96; PULSE 75–90; RESP 16–18; TEMP 97.4–98.6; O2SAT 95–99
--- NOTE | 2024-12-03 16:26 | DVHPN2 ---
Subjective 44-year-old female is here for left flank pain found to have left obstructive uropathy with left ureteric stone. Patient's pain is much better, extra KUB has been ordered, Urology consult still pending. Reviewed: Care Plan Changes from previous H/P or p: No Changes Eyes: No Pain, No Vision change, No Conjunctivae inflammation, No Eyelid inflammation, No Other, No Redness ENT: No Ear pain, No Ear discharge, No Nose pain, No Nose discharge, No Nose congestion, No Mouth pain, No Mouth swelling, No Throat pain, No Throat swelling, No Other Cardiovascular: No Chest Pain, No Palpitations, No Orthopnea, No Paroxysmal Noc. Dyspnea, No Edema, No Lt Headedness, No Other Respiratory: No Cough, No Dry, No Shortness of breath, No SOB with excertion, No Wheezing, No Hemoptysis, No Pleuritic Pain, No Sputum, No Other Gastrointestinal: Nausea, Vomiting, Abdominal Pain; No Diarrhea, No Constipation, No Melena, No Hematochezia, No Other Genitourinary: No Dysuria, No Frequency, No Incontinence, No Hematuria, No Retention, No Other Musculoskeletal: No other, No neck pain, No shoulder pain, No arm pain, No back pain, No hand pain, No leg pain, No foot pain Skin: No Rash, No Lesions, No Jaundice, No Bruising, No Other Objective Vitals Vital Signs Date Time Temp Pulse Resp B/P (MAP) Pulse Ox O2 Delivery O2 Flow Rate FiO2 12/03/24 13:00 98.0 90 18 155/74 (101) 95 98.0 12/02/24 22:13 Room Air* 0 21 Intake/Output Intake and Output 12/03/24 07:00 Intake Total 170 ml Balance 170 ml Intake Oral 120 ml IV Total 50 ml Exam HEENT pupils are reactive Neck is supple CV is S1-S2 regular rate and rhythm Respiratory are clear GI positive bowel sound Extremity no edema [employer]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 Medications Current Medications Medications Dose Ordered Sig/Gregory Route Start Time Stop Time Status Last Admin Dose Admin Ceftriaxone Sodium 50 ml @ 100 mls/hr DAILY@09 IV 12/02/24 09:00 12/03/24 09:43 100 MLS/HR Sodium Chloride 10 ml Q8HR IV 12/02/24 06:00 12/03/24 14:25 10 ML Acetaminophen/ Hydrocodone Bitart 1 tab Q4HP PRN PO 12/02/24 00:00 Ondansetron HCl 4 mg Q4HP PRN IV 12/02/24 00:00 Docusate Sodium 100 mg BIDPRN PRN PO 12/02/24 00:00 Acetaminophen 650 mg Q6HP PRN PO 12/02/24 00:00 Hydromorphone HCl 0.5 mg Q4HPRN PRN IV 12/02/24 00:00 Nitroglycerin 0.4 mg Q5MINP PRN SL 12/02/24 03:15 Morphine Sulfate 2 mg Q30M PRN IV 12/02/24 03:15 Tamsulosin HCl 0.4 mg QPM PO 12/02/24 18:00 12/02/24 18:24 0.4 MG Laboratory Results Laboratory Tests 12/02/24 05:05 Urinalysis Test 12/01/24 20:37 Urine Color Colorless (Yellow) Urine Clarity Clear (Clear) Urine pH 7.0 (5.0-9.0) Urine Specific [place] 1.011 (1.001-1.035) Urine Protein Negative (Negative) Urine Ketones 1+ (Negative) H Urine Blood 2+ /uL (Negative) H Urine Nitrite Negative (Negative) Urine Bilirubin Negative (Negative) Urine Urobilinogen Normal mg/dL (Negative) Urine Leukocyte Esterase Trace /uL (Negative) Urine RBC 65 /hpf (0 - 4) Urine Microscopic WBC 1 /HPF (0-5) Urine Squamous Epithelial Cells Few /hpf (<5) Urine Bacteria None seen /hpf (None Seen) Urine Mucus Few (None Seen) Urine Glucose Normal mg/dL (Normal) Urine Test Negative (Negative) Assessment/Plan Assessment/Plan 44-year-old female with a no significant past medical history presented to the hospital with left flank pain found to have 1. Acute left obstructive uropathy secondary to left ureteric stone 2. Left ureteric UVJ stone 3. Mild leukocytosis 4. Complicated UTI -IV antibiotics, Flomax, IV fluids, Urology consultation -x-ray KUB. Plan discussed with: Patient, Spouse My Orders Orders - KARINA CORNELL MD Procedure Category Date Status Time Kub Abdomen Single XY 12/03/24 Logged View 13:14 Date of Service: Dec 03, 2024 Billing Provider: KARINA CORNELL MD Common Visit Codes: [id number] INP/OBS CARE(MOD) KARINA CORNELL MD Dec 03, 2024 16:26
--- NOTE | 2024-12-03 17:40 | DVH ---
ABDOMEN, (KUB) ONE VIEW REASON FOR EXAM: kidney stone COMPARISON: None TECHNIQUE: A single view of the abdomen is obtained. FINDINGS: There is a non-obstructive bowel gas pattern. A 4 mm calcification projects over the left middle pelvis that may represent a distal left ureteral calculus. No acute osseous abnormality is id entified. IMPRESSION: There is a 4 mm calcification projecting over the left middle pelvis consistent with distal left ure teral calculus.
[2024-12-04] VITALS (7 sets, daily range): BP systolic 105–131; BP diastolic 69–91; PULSE 75–85; RESP 16–19; TEMP 97.9–98.8; O2SAT 98–100
[2024-12-04] MEDS ORDERED: TAMS-35 PO (16:09)
[2024-12-04] MEDS ORDERED: HYDR-4902 PO (16:09)
[2024-12-04] MEDS ORDERED: CEPH500C PO (16:14)
[2024-12-04] MEDS ORDERED: NALO4SPR2 (16:14)
--- NOTE | 2024-12-04 16:14 | DVHDS2 ---
Discharge Summary Date of Admission Dec 02, 2024 at 03:03 Date of Discharge: Dec 04, 2024 Labs/Diagnostic Data: Laboratory Results Test 12/02/24 05:05 12/01/24 20:37 12/01/24 20:35 White Blood Count 12.1 10^3/uL (4.4-10.8) Red Blood Count 4.57 10^6/uL (4.0-5.20) Hemoglobin 13.2 g/dL (12.2-16.2) Hematocrit 38.9 % (36.0-46.0) Mean Corpuscular Volume 85.0 fL (80.0-100.0) Mean Corpuscular Hemoglobin 28.9 pg (28.0-32.0) Mean Corpuscular Hemoglobin Concent 34.0 g/dL (32.0-36.0) Red Cell Distribution Width 13.4 % (11.8-14.3) Platelet Count 298 10^3/uL (140-450) Mean Platelet Volume 8.8 fL (6.9-10.8) Neutrophils (%) (Auto) 88.2 % (37.0-80.0) Lymphocytes (%) (Auto) 9.3 % (10.0-50.0) Monocytes (%) (Auto) 1.5 % (0.0-12.0) Eosinophils (%) (Auto) 0.0 % (0.0-7.0) Basophils (%) (Auto) 1.0 % (0.0-2.0) Neutrophils # (Auto) 10.7 10 ^3/uL (1.6-8.6) Lymphocytes # (Auto) 1.1 10 ^3/uL (0.4-5.4) Monocytes # (Auto) 0.2 10 ^3/uL (0-1.3) Eosinophils # (Auto) 0 10 ^3/uL (0-0.8) Basophils # (Auto) 0.1 10 ^3/uL (0-0.2) Nucleated Red Blood Cells 0.0 % Sodium Level 141 mmol/L (136-145) Potassium Level 4.2 mmol/L (3.5-5.1) Chloride Level 107 mmol/L (98-107) Carbon Dioxide Level 22 mmol/L (20-31) Anion Gap 12 (5-15) Blood Urea Nitrogen 15 mg/dL (9-23) Creatinine 1.09 mg/dL (0.550-1.02) Glomerular Filtration Rate Calc 65 mL/min (>90) BUN/Creatinine Ratio 13.8 (10.0-20.0) Serum Glucose 131 mg/dL (74-106) Calcium Level 9.5 mg/dL (8.7-10.4) Total Bilirubin 0.4 mg/dL (0.2-1.0) Aspartate Amino Transferase (AST) 13 U/L (<34) Alanine Aminotransferase (ALT) 9 U/L (7-40) Alkaline Phosphatase 71 U/L (46-116) Total Protein 7.4 g/dL (5.7-8.2) Albumin 4.4 g/dL (3.2-4.8) Urine Color Colorless (Yellow) Urine Clarity Clear (Clear) Urine pH 7.0 (5.0-9.0) Urine Specific [place] 1.011 (1.001-1.035) Urine Protein Negative (Negative) Urine Ketones 1+ (Negative) Urine Blood 2+ /uL (Negative) Urine Nitrite Negative (Negative) Urine Bilirubin Negative (Negative) Urine Urobilinogen Normal mg/dL (Negative) Urine Leukocyte Esterase Trace /uL (Negative) Urine RBC 65 /hpf (0 - 4) Urine Microscopic WBC 1 /HPF (0-5) Urine Squamous Epithelial Cells Few /hpf (<5) Urine Bacteria None seen /hpf (None Seen) Urine Mucus Few (None Seen) Urine Glucose Normal mg/dL (Normal) Urine Test Negative (Negative) Lipase 36 U/L (12-53) Other Laboratory Tests 12/02/24 05:05 Brief Hx & Hospital Course: 44-year-old female with a no significant past medical history presented to the hospital with left flank pain found to have acute left obstructive uropathy secondary to left ureteric stone. Patient was started on IV fluids, Flomax IV antibiotics, Urology was consulted who recommended outpatient follow up with cystoscopy and ESWL as patient's pain has resolved. Patient is being discharged under stable condition on p.o. antibiotics and pain pills. No driving, no signing of legal documents, no planning on heavy machinery while on narcotics. Patient understand verbalized understanding and agreeable to plan. Patient's leukocytosis has been resolved. Condition at Discharge: Stable Final Diagnosis/Problems List 44-year-old female with a no significant past medical history presented to the hospital with left flank pain found to have 1. Acute left obstructive uropathy secondary to left ureteric stone 2. Left ureteric UVJ stone 3. Mild leukocytosis 4. Complicated UTI Discharge Disposition: Home SNF Discharge Will this Physician continue t: No Discharge Instruct/Medications Diet: Regular Activity: No Restrictions, As Tolerated Activity comment: No driving, no playing on heavy machinery, no signing legal documents while on narcotics. Follow Up/Referral: Follow up with the PCP in one week Follow up with Dr. Balaji Carreno in one week Medications: Mineral and Keflex as prescribed Discharge Statement: "Patient was advised to return to the ER or call 911 if any headaches, dizziness, shortness of breath, chest pain, abdominal pain, bleeding, fevers, or worsening of medical condition. Patient was counseled about treatment plan, medications, possible side effects, patientverbalized understanding. All questions were answered to the best of my ability. This discharge took greater then 30 minutes in planning, reviewing documentation, counseling the patient, and discussing with other team members." ASSESSMENT ASSESSMENT Assessment 44-year-old female with a no significant past medical history presented to the hospital with left flank pain found to have 1. Acute left obstructive uropathy secondary to left ureteric stone 2. Left ureteric UVJ stone 3. Mild leukocytosis 4. Complicated UTI Date of Service: Dec 04, 2024 Billing Provider: KARINA CORNELL MD Common Visit Codes: [id number] DISCH DAY >30min KARINA CORNELL MD Dec 04, 2024 16:14
[2024-12-04] MEDS: CEPHALEXIN 250 MG CAP PO ONE (16:15)
== END 2024-12-04 18:50 | disposition home or self-care (01) | DRG 463 ==
LOC: EDBD 20:02 → ER 20:02 → OVERFLOW 12-02 03:03 → TELE-EAST 12-02 22:13
PROVIDERS: ADMIT Internal Medicine; ATTEND Internal Medicine
DX: N13.6 Pyonephrosis (principal); E87.6 Hypokalemia; I16.0 Hypertensive urgency; R73.9 Hyperglycemia, unspecified; Z88.0 Allergy status to penicillin
CPT/HCPCS: 36415; 74018; 74176; 80053; 81001; 81025; 83690; 85025; 96374; 96375; 96376; G0378; J1885; J2405